=== PATIENT | male | born 1995 | race Caucasian/White ===

== ENCOUNTER 2016-07-17 06:00 | Emergency (ER) | payer BC ==
--- NOTE | 2016-07-17 06:12 | EDPHY ---
H & P Source: Patient, EMS Time Seen by Provider: 07/17/16 06:08 HPI/ROS: HPI The patient presents brought in by ambulance on M1 hold for suicidal ideation. He is visiting friends at [facility] from [place] where he usually lives. Tonight he was out using alcohol, Xanax, cocaine. He said he was feeling suicidal and police were called. He does not seem to have a plan. He was placed on an M1 hold. He has a prior history of suicidal ideation. REVIEW OF SYSTEMS Constitutional: No fever, no chills. Eyes: No discharge. ENT: No sore throat. Cardiovascular: No chest pain, no palpitations. Respiratory: No cough, no shortness of breath. Gastrointestinal: No abdominal pain, no vomiting. Genitourinary: No hematuria. Musculoskeletal: No back pain. Skin: No rashes. Neurological: No headache. PMHx: Depression Soc Hx: Visiting from [place], works as a claim trainee PHYSICAL General Appearance: Awake, obviously intoxicated with slurring of his speech Eyes: Pupils equal and round no pallor or injection ENT, Mouth: Mucous membranes moist Respiratory: There are no retractions, lungs are clear to auscultation Cardiovascular: Regular rate and rhythm Gastrointestinal: Abdomen is soft and non-tender, no masses, bowel sounds normal Neurological: A&O, moves all extremities Skin: Warm and dry, no rashes Musculoskeletal: Neck is supple non tender Extremities: symmetrical, full range of motion Psychiatric: Patient is oriented X 3, there is no agitation (Katerine Reno) Constitutional: Initial Vital Signs Temperature (C) 36.6 C 07/17/16 06:00 Heart Rate 98 07/17/16 06:00 Respiratory Rate 18 07/17/16 06:00 Blood Pressure 117/69 07/17/16 06:00 O2 Sat (%) 95 07/17/16 06:00 O2 Delivery Mode Room Air O2 (L/minute) 2 Allergies/Adverse Reactions: No Known Allergies Allergy (Unverified 07/17/16 06:17) Home Medications: Medication Instructions Recorded Adderall 10 MG (*) 07/17/16 Xanax 07/17/16 Medical Decision Making ED Course/Re-evaluation: 6:00 a.m.- I met the paramedics at the bedside to obtain their report. The patient has been placed on an M1 hold by police for suicidal ideation. We will check basic labs. (Katerine Reno) Care is assumed at 7:00 a.m. on this this patient who is intoxicated a and on a mental health hold for suicidal. Plan will be to wait for clinical sobriety and then re-evaluate. 1350: Patient seen and evaluated by myself. He is alert and ambulatory and not intoxicated anymore. He denies suicidal ideation and says I do not know what that was about. Patient is clearly not suicidal or homicidal now. Not hallucinating. Not gravely disabled. Currently has no medical complaints. The mental health hold is vacated by myself at this time. He does not appear to be a danger to himself or gravely disabled. (Ben Dutta) Differential Diagnosis: This is a 21-year-old healthy male with history of depression, visiting from out of town, using alcohol Xanax and cocaine last night and now feeling suicidal. It does not appear he took these substances as a suicide attempt, rather recreationally. Differential diagnosis includes depression with suicidality, bipolar disorder with suicidal ideation, polysubstance abuse. (Katerine Reno) - Data Points Laboratory Results: Laboratory Results 07/17/16 06:12 07/17/16 05:50 07/17/16 07/17/16 06:12 05:50 WBC 7.09 10^3/uL (3.80-9.50) RBC 5.55 10^6/uL (4.40-6.38) Hgb 17.4 g/dL (13.7-17.5) Hct 49.7 % (40.0-51.0) MCV 89.5 fL (81.5-99.8) MCH 31.4 pg (27.9-34.1) MCHC 35.0 g/dL (32.4-36.7) RDW 13.1 % (11.5-15.2) Plt Count 233 10^3/uL (150-400) MPV 9.7 fL (8.7-11.7) Neut % (Auto) 58.3 % (39.3-74.2) Lymph % (Auto) 33.7 % (15.0-45.0) Fannin % (Auto) 6.3 % (4.5-13.0) Eos % (Auto) 0.8 % (0.6-7.6) Baso % (Auto) 0.6 % (0.3-1.7) Nucleat RBC Rel Count 0.0 % (0.0-0.2) Absolute Neuts (auto) 4.13 10^3/uL (1.70-6.50) Absolute Lymphs (auto) 2.39 10^3/uL (1.00-3.00) Absolute Monos (auto) 0.45 10^3/uL (0.30-0.80) Absolute Eos (auto) 0.06 10^3/uL (0.03-0.40) Absolute Basos (auto) 0.04 10^3/uL (0.02-0.10) Absolute Nucleated RBC 0.00 10^3/uL (0-0.01) Immature Gran % 0.3 % (0.0-1.1) Immature Gran # 0.02 10^3/uL (0.00-0.10) Sodium 152 H mEq/L (134-144) Potassium 5.2 mEq/L (3.5-5.2) Chloride 106 mEq/L (97-110) Carbon Dioxide 28 mEq/l (22-31) Anion Gap 18 mEq/L (8-16) BUN 9 mg/dL (7-23) Creatinine 1.0 mg/dL (0.7-1.3) Estimated GFR > 60 Glucose 98 mg/dL (70-100) Calcium 9.9 mg/dL (8.5-10.4) Total Bilirubin 1.2 mg/dL (0.1-1.4) AST 45 IU/L (17-59) ALT 38 IU/L (21-72) Alkaline Phosphatase 75 IU/L (38-126) Total Protein 8.7 H g/dL (6.3-8.2) Albumin 5.3 H g/dL (3.5-5.0) Salicylates < 1.0 L mg/dL (2.0-20.0) Acetaminophen < 10 L mcg/mL (10.0-30.0) Ethyl Alcohol 257 H mg/dL (0-10) Medications Given: Discontinued Medications Sodium Chloride (Ns) 1,000 mls @ 0 mls/hr IV ONCE ONE PRN Reason: Wide Open Stop: 07/17/16 07:16 Last Admin: 07/17/16 06:00 Dose: 1,000 mls Departure - Departure Disposition: Home, Routine, Self-Care Clinical Impression: Alcohol intoxication, Depression Condition: Good Instructions: Alcohol Intoxication (ED) Referrals: Allie Castañeda MD [Medical Doctor] - As per Instructions
[2016-07-17 06:16] LABS: % IMMATURE GRANULYOCYTES 0.3 % (0.0-1.1); ABSOLUTE IMMATURE GRANULOCYTES 0.02 10^3/uL (0.00-0.10); ADD DIFF? NO; ADD MORPH? NO; ADD SCAN? NO; ATYPICAL LYMPHOCYTE FLAG 0 (0-99); FRAGMENT RBC FLAG 0 (0-99); HEMATOCRIT 49.7 % (40.0-51.0); HEMOGLOBIN 17.4 g/dL (13.7-17.5); LEFT SHIFT FLG 0 (0-99); LIPEMIA HEMOLYSIS FLAG 90 (0-99); MEAN CELL HEMOGLOBIN 31.4 pg (27.9-34.1); MEAN CELL VOLUME 89.5 fL (81.5-99.8); MEAN PLATELET VOLUME 9.7 fL (8.7-11.7); PLATELET CLUMPS FLAG 0 (0-99); PLATELET COUNT 233 10^3/uL (150-400); RED BLOOD CELL COUNT 5.55 10^6/uL (4.40-6.38); RED CELL DISTRIBUTION WIDTH 13.1 % (11.5-15.2)
[2016-07-17 06:33] LABS: ALANINE AMINOTRANSFERASE 38 IU/L (21-72); ALBUMIN 5.3 g/dL (3.5-5.0); ALKALINE PHOSPHATASE 75 IU/L (38-126); ANION GAP 18 mEq/L (8-16); ASPARTATE AMINOTRANSFERASE 45 IU/L (17-59); BILIRUBIN,TOTAL 1.2 mg/dL (0.1-1.4); CALCIUM 9.9 mg/dL (8.5-10.4); CARBON DIOXIDE 28 mEq/l (22-31); CHLORIDE 106 mEq/L (97-110); ETHANOL SERUM 257 mg/dL (0-10); GLOMERULAR FILTRATION RATE > 60; GLUCOSE 98 mg/dL (70-100); POTASSIUM 5.2 mEq/L (3.5-5.2); SALICYLATE < 1.0 mg/dL (2.0-20.0); SODIUM 152 mEq/L (134-144); TOTAL PROTEIN 8.7 g/dL (6.3-8.2)
[2016-07-17] MEDS ORDERED: NS 1,000 ML IV ONE (07:15)
[2016-07-17 14:01] VITALS: BP 112/63; PULSE 82; RESP 16; TEMP 97.7; O2SAT 97
== END 2016-07-17 14:18 | disposition home or self-care (01) ==
DX: F32.9 Major depressive disorder, single episode, unspecified (principal); F17.200 Nicotine dependence, unspecified, uncomplicated; F10.129 Alcohol abuse with intoxication, unspecified
CPT/HCPCS: G0480